=== PATIENT | female | born 1975 | race Caucasian/White ===

== ENCOUNTER 2024-06-12 10:19 | Emergency (ER) | payer BC, SELFPAY ==
[2024-06-12 10:30] VITALS: BP 121/62
[2024-06-12] MEDS: DECADRON 10 MG PO (11:39)
--- NOTE | 2024-06-12 11:52 | ED.GENMED ---
History of Present Illness
General
Chief Complaint: Back Pain
Source: patient
Time Seen by Provider: 06/12/24 11:35
Nursing documentation reviewed up to this point in time: agreed with
History of Present Illness
History of Present Illness:
49 yo female with hx of Raynaud's, Sjogren's, Scleroderma) states she injured left lower back one week ago bending over to place a heavy bag of soil on the ground at home. Over the week it got better but today 6:30 a.m. was bending to put something
in the oven and sudden similar pain occurred. Denies numbness, tingling or weakness in legs. Pain radiated 1/[address] down her lateral left thigh. Denies loss of bowel or bladder control, saddle anesthesia.
Has been able to ambulate
Past History
Past History
ED Past Medical History: Other (Raynaud's syndrome, scleroderma, Sjogren's)
ED Past Surgical History: Gynecological (Hysterectomy)
Social History
Tobacco: Non-smoker
Alcohol: None
Personal:
Living: with family
Employment: Not employed
Family History
Family History: Other (Noncontributory)
Review of Systems
Review of Systems
Allergies reviewed?: Yes
All Other Systems: ROS reviewed and negative except as documented in HPI and ROS
Constitutional: Denies fever or chills
Respiratory: Denies trouble breathing
Cardiac: Denies chest pain
ABD/GI: Denies abdominal pain or nausea
: Denies incontinence
Musculoskeletal: Reports back pain (left lower back)
Skin: Reports no symptoms
Neurological: Reports other (pain radiates 1/2 way down left lateral thigh); Denies weakness or numbness
Phy Exam
Physical Exam
Physical Exam:
GENERAL: No acute distress. A&Ox3.
CONSTITUTIONAL: Afebrile.
EYES: clear, conjunctivae normal
ENMT: moist mucus membranes, Pharynx nl
RESPIRATORY: Regular respirations, nonlabored, lungs clear.
CARDIOVASCULAR: Regular rate and rhythm, no murmurs, no rubs.
GI: Soft, nontender, normal BS
MUSCULOSKELETAL: Tender L lower para lumbar ST. No spinal bony tenderness. Gets off and on stretcher independently. Laying supine, Neg SLR. No pain with flexion both knees, abduction and adduction. Pain elicited with rotation of torso and forward
flexion. Well perfused.
SKIN: Warm, dry, pink
PSYCH: Normal mood and affect. Well kept, interactive and appropriate
NEUROLOGIC: Awake, alert and oriented. No focal neurological deficits
Course
Orders/Labs/Results
Orders:
Orders
06/12/24 11:35
Dexamethasone [Decadron] 10 mg PO NOW STA
Vital Signs
Initial and Last Documented VS:
Initial Vital Signs
Temp Pulse Resp BP Pulse Ox
98.0 F 78 16 121/62 100
06/12/24 10:30 06/12/24 10:30 06/12/24 10:30 06/12/24 10:30 06/12/24 10:30
Last Documented Vital Signs
Temp Pulse Resp BP Pulse Ox
98.0 F 78 16 121/62 100
06/12/24 10:30 06/12/24 10:30 06/12/24 10:30 06/12/24 10:30 06/12/24 10:30
MDM/Problems Addressed
Differential Diagnosis Includes:
Lumbar strain, sciatica, disc herniation
MDM/Problems Addressed:
49 yo female with hx of Raynaud's, Sjogren's, Scleroderma) states she injured left lower back one week ago bending over to place a heavy bag of soil on the ground at home. Over the week it got better but today 6:30 a.m. was bending to put something
in the oven and sudden similar pain occurred. Denies numbness, tingling or weakness in legs. Pain radiated 1/[address] way down her lateral left thigh. Denies loss of bowel or bladder control, saddle anesthesia.
Has been able to ambulate
Afebrile, NAD
Hx and exam consistent with left low back strain with sciatica. Pain does not go past the mid thigh, do not suspect disc herniation.
No neuro deficits. Ambulates well but slowly.
Rx for muscle relaxant and short steroid regimen sent to her pharmacy.
*Critical Care Note
Total Time (30-74mins, 75-104mins- exclusive of procedures): Not Applicable
ED Attending Note
-
Portions of this chart may have been created with voice recognition software.� Occasional wrong word or��sound alike� substitutions may have occurred due to the inherent limitations of voice recognition software.
Discharge Plan
Departure
Patient Disposition: Home (Routine Discharge)
Date of Disposition: 06/12/24
Time of Disposition: 11:48
Patient with high blood pressure during this ER visit?: No
Condition: Good
Discharge Problem:
Low back strain, Acute left-sided back pain with sciatica
Instructions: Low Back Pain (DC), Sciatica (DC)
Prescriptions:
New
prednisone 20 mg tablet
40 mg PO DAILY Qty: 8 0RF
cyclobenzaprine 10 mg tablet
10 mg PO HS PRN (Reason: back pain, spasms) Qty: 10 0RF
Referrals:
Kylah Sesay MD [Family Provider] - Follow up in 5-7 days
Activity Restrictions/Additional Instructions:
As we discussed, I sent a prescription to your pharmacy for prednisone, started tomorrow as you were given a dose of steroid here today.
I also sent a prescription for a muscle relaxant that you can take at bedtime. You may also continue ibuprofen 600 mg up to 3 times a day.
Move around is much as you comfortably can to avoid the back getting more stiff and sore but don't overdo it
See your doctor in 1 week if you are not much improved by then
Interventions
Interventions:
*Risk Screen - Suicide Last Done: 06/12/24 10:20
*General Assessment Last Done: 06/12/24 11:56
*Nursing Disposition Last Done: 06/12/24 11:56
ED-Musculoskeletal Assessment Last Done: 06/12/24 11:21
Discharge Date and Time
Discharge Date/Time: 06/12/24 11:56
Print Language: [place]
== END 2024-06-12 11:56 | disposition home or self-care (01) ==
LOC: EMR 10:19
PROVIDERS: EMERGENCY PHYSICIAN Emergency Medicine; FAMILY PHYSICIAN Family Medicine
DX: S39.012A Strain of muscle, fascia and tendon of lower back, initial encounter (principal); M54.42 Lumbago with sciatica, left side; X58.XXXA Exposure to other specified factors, initial encounter; I73.00 Raynaud's syndrome without gangrene; M35.00 Sjogren syndrome, unspecified; M34.9 Systemic sclerosis, unspecified; Z90.710 Acquired absence of both cervix and uterus
CPT/HCPCS: 99282